=== PATIENT | male | born 1985 | race Two or more races ===

== ENCOUNTER 2023-12-22 15:40 | Inpatient (IN) | payer BC ==
[~2023-12-22] VITALS: Ht 172.7 cm; Wt 87.1 kg
[2023-12-22] MEDS ORDERED: ONDANSETRON HCL/PF 4 MG/2 ML VIAL ONE (16:35)
[2023-12-22] MEDS ORDERED: KETOROLAC TROMETHAMINE 15 MG/ML VIAL ONE (16:35)
[2023-12-22] MEDS ORDERED: MORPHINE SULFATE INJ 4 MG/ML DISP.SYRIN ONE (16:35)
[2023-12-22 16:40] LABS: BASOPHILS # (AUTO) 0.1 K/uL (0.0-0.2); BASOPHILS % (AUTO) 0.3 % (0.0-2.0); HEMATOCRIT 41 % (39-51); LYMPHOCYTES % (AUTO) 6.2 % (20.0-44.0); MEAN CORPUSCULAR HEMOGLOBIN 29 PG (26.0-33.0); MEAN CORPUSCULAR HGB CONC 34 g/dl (31.0-36.0); MEAN CORPUSCULAR VOLUME 84 fL (80-96); MONOCYTES # (AUTO) 0.8 K/uL (0.1-1.30); MONOCYTES % (AUTO) 5.1 % (2.0-12.0); NEUTROPHILS # (AUTO) 14.5 K/uL (1.8-8.9); NEUTROPHILS % (AUTO) 88.4 % (43.0-81.0); PLATELET COUNT (AUTO) 248 K/uL (150-450); RED BLOOD CELL COUNT(AUTO) 4.92 MIL/uL (4.5-6.0); RED CELL DISTRIBUTION WIDTH 13.6 % (11.5-15.0); WHITE BLOOD COUNT (AUTO) 16.4 K/uL (4.3-11.0)
[2023-12-22] MEDS: ONDANSETRON HCL/PF 4 MG/2 ML VIAL IVP ONE (16:45)
[2023-12-22] MEDS: KETOROLAC TROMETHAMINE 15 MG/ML VIAL IV ONE (16:47)
[2023-12-22 16:50] LABS: CALCIUM, SERUM 9.1 mg/dL (8.5-10.1); CREATININE 0.9 mg/dL (0.6-1.3); POTASSIUM 3.9 mmol/L (3.5-5.1)
[2023-12-22] MEDS: MORPHINE SULFATE INJ 2 MG/ML DISP.SYRIN IV ONE (16:50)
[2023-12-22 16:56] LABS: ALBUMIN 4.3 g/dL (3.4-5.0); BILIRUBIN,DIRECT 0.1 mg/dL (0.0-0.2); BILIRUBIN,TOTAL 0.6 mg/dL (0.2-1.0); TOTAL PROTEIN, SERUM 7.9 g/dL (6.4-8.2)
[2023-12-22] MEDS: IV NS 0.9% 1,000 ML BAG IV ONE (17:04)
[2023-12-22 17:11] LABS: APPEARANCE,URINE Clear (CLEAR); BILIRUBIN,URINE Negative (NEGATIVE); BLOOD, URINE Negative Ery/uL (NEGATIVE); COLOR,URINE YELLOW (YELLOW); KETONES,URINE 15 mg/dL (NEGATIVE); LEUKOCYTE ESTERASE ,URINE Negative (NEGATIVE); NITRITE, URINE Negative (NEGATIVE); PROTEIN,URINE 30 mg/dl (NEGATIVE); UGLUCOSE Negative (NEGATIVE); UROBILINOGEN,URINE 0.2 EU/dL (0.2)
[2023-12-22 17:25] LABS: ADD URINE CULTURE NO; BACTERIA,URINE Few /HPF (None Seen); RBC,URINE 0-2 /HPF (0-2); WBC,URINE 0-2 /HPF (0-3)
[2023-12-22 17:26] LABS: SQUAMOUS EPITHELIAL CELL,UR Few /HPF (None Seen)
[2023-12-22] MEDS: PIPERACILLIN /TAZOBACTAM 3.375 G in IV D5W 50 ML IV ONE (17:30)
[2023-12-22] MEDS ORDERED: ATOR20TA PO (17:37)
[2023-12-22] MEDS ORDERED: LEVO50TA66 PO (17:37)
[2023-12-22] MEDS ORDERED: MAGNESIUM HYDROXIDE 30 ML UDC PO PRN (19:00)
[2023-12-22] MEDS ORDERED: ONDANSETRON HCL/PF 4 MG/2 ML VIAL IVP PRN (19:00)
[2023-12-22] MEDS ORDERED: Z GUARD REMEDY 4 OZ OINT TP PRN (19:00)
[2023-12-22] MEDS ORDERED: MAG HYDROX/AL HYDROX/SIMETH 30 ML UDC PO PRN (19:00)
[2023-12-22] MEDS ORDERED: ACETAMINOPHEN 325 MG TABLET PO PRN (19:00)
[2023-12-22] MEDS: IV NS 0.9% 1,000 ML IV PRN (21:28)
[2023-12-22] MEDS: MORPHINE SULFATE INJ 2 MG/ML DISP.SYRIN IV PRN (21:28)
[2023-12-22] MEDS: ZOSYN IVPB 3.375 G in IV D5W 50ml IV SCH (23:00)
[2023-12-22] MEDS ORDERED: SEVOFLURANE 250 ML BOTTLE IH ONE (23:02)
[2023-12-22] MEDS ORDERED: FENTANYL PF 100MCG/2ML AMPUL ONE (23:02)
[2023-12-22] MEDS ORDERED: ROCURONIUM BROMIDE 50 MG/5 ML ONE (23:03)
[2023-12-22] MEDS ORDERED: MIDAZOLAM HCL 2 MG/2ML VIAL ONE (23:03)
[2023-12-22] MEDS ORDERED: BUPIVACAINE 0.5 % PF 150 MG/30 ML VIAL ONE (23:07)
[2023-12-22] MEDS ORDERED: LIDOCAINE 1%-EPI 1:100,000 20 ML VIAL ONE (23:07)
[2023-12-22] MEDS ORDERED: ANESTHESIA TRAY IN PYXIS 1 EA TRAY MC ONE (23:07)
[2023-12-22 23:10] LABS: INR 1.05 (0.91-1.10); PARTIAL THROMBOPLASTIN TIME 28.5 SEC (24.3-34.3); PROTHROMBIN TIME 11.1 SECS (9.2-11.1)
[2023-12-23] VITALS (13 sets, daily range): BP systolic 96–110; BP diastolic 52–70; TEMP 97.5–98.8; O2SAT 94–100
[2023-12-23] MEDS ORDERED: PIPERACILLIN /TAZOBACTAM 4.5 G in IV D5W 50 ML IV SCH
[2023-12-23] MEDS ORDERED: LEVOTHYROXINE SODIUM 50 MCG TABLET PO SCH (07:30)
[2023-12-23] MEDS: LEVOTHYROXINE SODIUM 50 MCG TABLET PO SCH (07:31)
[2023-12-23] MEDS: ATORVASTATIN 10 MG TABLET PO SCH (08:29)
[2023-12-23 09:38] LABS: BASOPHILS % (AUTO) 0.1 % (0.0-2.0); HEMATOCRIT 40 % (39-51); HEMOGLOBIN 13.6 g/dL (13.5-17.5); LYMPHOCYTES # (AUTO) 1.1 K/uL (0.8-4.8); LYMPHOCYTES % (AUTO) 8.5 % (20.0-44.0); MEAN CORPUSCULAR HEMOGLOBIN 28 PG (26.0-33.0); MEAN CORPUSCULAR HGB CONC 34 g/dl (31.0-36.0); MEAN CORPUSCULAR VOLUME 84 fL (80-96); MONOCYTES # (AUTO) 0.3 K/uL (0.1-1.30); MONOCYTES % (AUTO) 2.5 % (2.0-12.0); NEUTROPHILS # (AUTO) 11.8 K/uL (1.8-8.9); NEUTROPHILS % (AUTO) 88.9 % (43.0-81.0); PLATELET COUNT (AUTO) 236 K/uL (150-450); RED CELL DISTRIBUTION WIDTH 13.8 % (11.5-15.0); WHITE BLOOD COUNT (AUTO) 13.3 K/uL (4.3-11.0)
[2023-12-23 10:10] LABS: MAGNESIUM 1.9 mg/dL (1.8-2.4); PHOSPHORUS 3.4 mg/dL (2.5-4.9)
[2023-12-23] MEDS: PIPERACILLIN /TAZOBACTAM 3.375 G in IV D5W 100 ML IV SCH (12:11)
[2023-12-24 04:08] VITALS: BP 101/53; TEMP 98.2; O2SAT 96
[2023-12-24 07:00] VITALS: BP 112/69; TEMP 97.6; O2SAT 95
[2023-12-24 08:58] LABS: BASOPHILS % (AUTO) 0.2 % (0.0-2.0); EOSINOPHILS % (AUTO) 0.1 % (0.0-6.0); HEMATOCRIT 39 % (39-51); HEMOGLOBIN 13.2 g/dL (13.5-17.5); LYMPHOCYTES # (AUTO) 2.2 K/uL (0.8-4.8); LYMPHOCYTES % (AUTO) 18.6 % (20.0-44.0); MEAN CORPUSCULAR HEMOGLOBIN 28 PG (26.0-33.0); MEAN CORPUSCULAR HGB CONC 34 g/dl (31.0-36.0); MEAN CORPUSCULAR VOLUME 84 fL (80-96); MONOCYTES # (AUTO) 0.7 K/uL (0.1-1.30); MONOCYTES % (AUTO) 6.1 % (2.0-12.0); NEUTROPHILS # (AUTO) 8.9 K/uL (1.8-8.9); PLATELET COUNT (AUTO) 229 K/uL (150-450); RED CELL DISTRIBUTION WIDTH 14.1 % (11.5-15.0); WHITE BLOOD COUNT (AUTO) 11.9 K/uL (4.3-11.0)
[2023-12-24 15:00] VITALS: BP 110/64; TEMP 97.3; O2SAT 96
[2023-12-24 20:00] VITALS: BP 106/59; TEMP 98.2; O2SAT 96
[2023-12-25 04:00] VITALS: BP 107/60; TEMP 97.9; O2SAT 96
[2023-12-25 08:00] VITALS: BP 112/74; TEMP 97.7; O2SAT 99
[2023-12-25] MEDS ORDERED: AMOX-430 PO (10:12)
[2023-12-25 12:00] VITALS: BP 112/74; TEMP 98; O2SAT 96
== END 2023-12-25 12:50 | disposition home or self-care (01) | DRG 399 ==
LOC: ER 15:48 → MEDSG1 18:39 → ICU 12-23 00:25 → MEDSG1 12-23 05:38
PROVIDERS: ADMIT Internal Medicine; ATTEND Internal Medicine
PROC: 0DTJ4ZZ Resection of Appendix, Percutaneous Endoscopic Approach (ICD-10-PCS; principal; 2023-12-22)
DX: K35.32 Acute appendicitis with perforation, localized peritonitis, and gangrene, without abscess (principal); K42.9 Umbilical hernia without obstruction or gangrene; K40.90 Unilateral inguinal hernia, without obstruction or gangrene, not specified as recurrent; Z68.29 Body mass index [BMI] 29.0-29.9, adult; E66.9 Obesity, unspecified; Z79.890 Hormone replacement therapy; Z79.899 Other long term (current) drug therapy; I10 Essential (primary) hypertension; E78.5 Hyperlipidemia, unspecified; E03.9 Hypothyroidism, unspecified; Z82.49 Family history of ischemic heart disease and other diseases of the circulatory system; Z87.891 Personal history of nicotine dependence
CPT/HCPCS: 36415; 71045-TC; 80048-TC; 80076-TC; 81001; 83690-TC; 83735-TC; 84100-TC; 85025-TC; 85730-TC; 86850-TC; A4223; A6402; G0378; J0330; J1100; J1885; J2250; J2270; J2405; J2543; J2704; J3010; J3490; J7030; J7060